=== PATIENT | female | born 1935 | race Caucasian/White ===

== ENCOUNTER 2018-04-02 19:03 | Emergency (ER) | payer OTHER, BC ==
[~2018-04-02] VITALS: Ht 154.9 cm; Wt 98.6 kg
[~2018-04-02 19:03] MED LIST: AMLODIPINE BESYL5 MG PO; ASPIR 8181 M1 PO; AUGMENTIN875 MG PO; BENICAR HCT 401 EAC1 PO; BENICAR HCT1 TABLE2 PO; CALCIUM 600+D31 EACH PO; Claritin,Alavart PO; Coumadin Daily Dose PO; ENDOCET 5-3251 EACH PO; LIPITOR10 MG PO; LOPRESSOR25 MG PO; Lopressor PO; METOPROLOL TART50 MG PO; NEXIUM40 MG PO; NORVASC2.5 MG PO; Norvasc PO
[2018-04-02 21:33] VITALS: BP 182/79
== END 2018-04-02 21:53 | disposition home or self-care (01) ==
LOC: EME 19:03
PROC: 0HQFXZZ Repair Right Hand Skin, External Approach (ICD-10-PCS; principal; 2018-04-02)
DX: S61.216A Laceration without foreign body of right little finger without damage to nail, initial encounter (principal); W25.XXXA Contact with sharp glass, initial encounter; Y93.G1 Activity, food preparation and clean up; Z88.5 Allergy status to narcotic agent; Z88.1 Allergy status to other antibiotic agents
CPT/HCPCS: 99281; 99283

== ENCOUNTER 2018-04-06 12:49 | Emergency (ER) | payer OTHER, BC ==
[~2018-04-06] VITALS: Ht 154.9 cm; Wt 98.7 kg
[2018-04-06 12:54] VITALS: BP 180/77
== END 2018-04-06 13:31 | disposition home or self-care (01) ==
LOC: EME 12:49
DX: S61.216A Laceration without foreign body of right little finger without damage to nail, initial encounter (principal); W25.XXXA Contact with sharp glass, initial encounter; F41.9 Anxiety disorder, unspecified; K21.9 Gastro-esophageal reflux disease without esophagitis; I10 Essential (primary) hypertension; F32.9 Major depressive disorder, single episode, unspecified; Z88.5 Allergy status to narcotic agent; Z79.82 Long term (current) use of aspirin
CPT/HCPCS: 99281; 99284